=== PATIENT | male | born 2000 | race Caucasian/White ===

== ENCOUNTER 2022-12-02 17:14 | Emergency (ER) | payer OTHER ==
[~2022-12-02] VITALS: Ht 170.1 cm; Wt 77.1 kg
[2022-12-02 18:43] LABS: BASO % 0.6 % (0.0-1.0); EOS # 0.1 10*3/uL (0.0-0.4); EOS % 1.8 % (1.0-4.0); HEMATOCRIT 49.9 % (42.0-52.0); LYMPH # 2.1 10*3/uL (1.3-4.4); MEAN CELL VOLUME 89.6 fl (80.0-94.0); MEAN CORPUSCULAR HGB 31.6 pg (27.0-31.0); MEAN CORPUSCULAR HGB CONC 35.3 g/dl (33.0-37.0); MEAN PLATELET VOLUME 9.4 fl (9.6-12.3); MONO # 0.8 10*3/uL (0.1-1.0); MONO % 11.5 % (3.0-9.0); NEUT # 3.7 10*3/uL (2.3-7.9); NEUT % 54.8 % (47.0-73.0); PLATELET COUNT AUTOMATED 291 10*3/uL (130-400); RED BLOOD COUNT 5.57 10*6/uL (4.50-5.90); RED CELL DISTRI WIDTH 12.3 % (0-14.5); WHITE BLOOD COUNT 6.8 10*3/uL (4.8-10.8)
[2022-12-02 19:16] LABS: ALKALINE PHOSPHATASE 80 U/L (46-116); BUN 8 mg/dl (9-23); CHLORIDE 104 mmol/L (98-107); LIPASE 40 U/L (12-53); POTASSIUM 3.8 mmol/L (3.4-5.1); SGPT/ALT 15 U/L (10-49); TOTAL PROTEIN 7.4 gm/dL (6.0-8.0)
== END 2022-12-02 21:26 | disposition home or self-care (01) ==
LOC: ED 17:14
PROVIDERS: Physician Assistant Medical
DX: Q67.6 Pectus excavatum (principal)

== ENCOUNTER 2023-01-04 18:48 | Emergency (ER) | payer OTHER ==
[~2023-01-04] VITALS: Ht 167.6 cm; Wt 77.1 kg
[2023-01-04 19:22] LABS: BILIRUBIN Negative (Negative); BLOOD Negative (Negative); CLARITY Clear (Clear); COLOR Yellow (Yellow); GLUCOSE Negative (Negative); KETONE Negative (Negative); LEUKO ESTERASE Negative (Negative); NITRITE Negative (Negative)
[2023-01-04 19:24] LABS: RED CELL DISTRI WIDTH 12.4 % (0-14.5)
[2023-01-04 19:35] LABS: BASO % 0.5 % (0.0-1.0); EOS # 0.1 10*3/uL (0.0-0.4); EOS % 1.6 % (1.0-4.0); HEMATOCRIT 50.3 % (42.0-52.0); LYMPH # 2.9 10*3/uL (1.3-4.4); LYMPH % 38.6 % (27.0-41.0); MEAN CELL VOLUME 88.6 fl (80.0-94.0); MEAN CORPUSCULAR HGB 32.4 pg (27.0-31.0); MEAN CORPUSCULAR HGB CONC 36.6 g/dl (33.0-37.0); MEAN PLATELET VOLUME 9.6 fl (9.6-12.3); MONO # 0.6 10*3/uL (0.1-1.0); MONO % 8.1 % (3.0-9.0); NEUT # 3.8 10*3/uL (2.3-7.9); NEUT % 51.1 % (47.0-73.0); PLATELET COUNT AUTOMATED 312 10*3/uL (130-400); RED BLOOD COUNT 5.68 10*6/uL (4.50-5.90); WHITE BLOOD COUNT 7.4 10*3/uL (4.8-10.8)
[2023-01-04 19:36] LABS: ACT PARTIAL THROMBO TIME 30.2 SECONDS (20.0-32.1)
[2023-01-04 19:45] LABS: ALKALINE PHOSPHATASE 96 U/L (46-116); BUN 6 mg/dl (9-23); CHLORIDE 108 mmol/L (98-107); LIPASE 54 U/L (12-53); POTASSIUM 3.8 mmol/L (3.4-5.1); SGPT/ALT 18 U/L (10-49); TOTAL PROTEIN 7.7 gm/dL (6.0-8.0)
[2023-01-04 20:03] LABS: BACTERIA 1+; MUCOUS 1+
[2023-01-04] MEDS ORDERED: ONDANSETRON4 MG SL (20:51)
== END 2023-01-04 21:34 | disposition home or self-care (01) ==
LOC: ED 18:48
PROVIDERS: Internal Medicine
DX: K52.9 Noninfective gastroenteritis and colitis, unspecified (principal)

== ENCOUNTER 2023-05-18 22:31 | Emergency (ER) | payer OTHER ==
[~2023-05-18] VITALS: Ht 182.8 cm; Wt 79.4 kg
[~2023-05-18 22:31] MED LIST: ONDANSETRON4 MG SL
[2023-05-18 23:37] LABS: BASO % 0.5 % (0.0-1.0); EOS # 0.1 10*3/uL (0.0-0.4); EOS % 1.4 % (1.0-4.0); LYMPH # 2.1 10*3/uL (1.3-4.4); LYMPH % 32.7 % (27.0-41.0); MEAN CORPUSCULAR HGB 31.4 pg (27.0-31.0); MEAN CORPUSCULAR HGB CONC 35.3 g/dl (33.0-37.0); MEAN PLATELET VOLUME 9.4 fl (9.6-12.3); MONO # 0.5 10*3/uL (0.1-1.0); MONO % 7.2 % (3.0-9.0); NEUT # 3.6 10*3/uL (2.3-7.9); PLATELET COUNT AUTOMATED 294 10*3/uL (130-400); RED BLOOD COUNT 5.28 10*6/uL (4.50-5.90); RED CELL DISTRI WIDTH 12.4 % (0-14.5); WHITE BLOOD COUNT 6.3 10*3/uL (4.8-10.8)
[2023-05-19 00:04] LABS: ALKALINE PHOSPHATASE 79 U/L (46-116); BUN 9 mg/dl (9-23); CHLORIDE 107 mmol/L (98-107); POTASSIUM 3.2 mmol/L (3.4-5.1); SGPT/ALT 16 U/L (5-49); TOTAL PROTEIN 6.9 gm/dL (6.0-8.0)
== END 2023-05-19 03:04 | disposition home or self-care (01) ==
LOC: ED 22:31
PROVIDERS: Emergency Medicine
DX: R07.89 Other chest pain (principal); R73.9 Hyperglycemia, unspecified; E87.6 Hypokalemia

== ENCOUNTER 2023-10-11 12:01 | Emergency (ER) | payer SELFPAY | END 2023-10-11 18:57 | disposition left against medical advice (07) | LOC: ED 12:01 | DX: K08.89 Other specified disorders of teeth and supporting structures (principal); R22.9 Localized swelling, mass and lump, unspecified; Z53.21 Procedure and treatment not carried out due to patient leaving prior to being seen by health care provider ==

== ENCOUNTER 2023-10-13 13:19 | Emergency (ER) | payer MEDICAID ==
[~2023-10-13] VITALS: Ht 175.2 cm; Wt 82.1 kg
[2023-10-13] MEDS ORDERED: TOPCARE OMEPRAZ20 MG PO (13:26)
[2023-10-13] MEDS ORDERED: VITAMIN D-40010 MCG PO (13:26)
[2023-10-13] MEDS ORDERED: PENICILLIN VK500 MG PO (13:37)
[2023-10-13] MEDS ORDERED: PENICILLIN V POTASSIUM 500 MG TAB PO ONE (13:40)
[2023-10-13] MEDS ORDERED: Ketorolac Tromethamine 30 MG/ML VIAL IM ONE (13:40)
== END 2023-10-13 13:56 | disposition home or self-care (01) ==
LOC: ED 13:19
DX: K08.89 Other specified disorders of teeth and supporting structures (principal)

== ENCOUNTER 2024-09-14 12:05 | Emergency (ER) | payer SELFPAY ==
[~2024-09-14] VITALS: Ht 167.6 cm; Wt 85.7 kg
[~2024-09-14 12:05] MED LIST changes: +PENICILLIN VK500 MG PO; +TOPCARE OMEPRAZ20 MG PO; +VITAMIN D-40010 MCG PO
[2024-09-14] MEDS ORDERED: Lidocaine Hydrochloride 15 ML UDC PO STA (12:47)
[2024-09-14] MEDS ORDERED: Dicyclomine Hydrochloride 20 MG/10 ML OSYR PO STA (12:47)
[2024-09-14] MEDS ORDERED: MG-AL HYDROXIDE/SIMETICONE 30 ML UDC PO STA (12:47)
[2024-09-14 12:59] LABS: BASO # 0.1 10*3/uL (0.0-0.1); BASO % 0.7 % (0.0-1.0); EOS # 0.2 10*3/uL (0.0-0.4); EOS % 2.2 % (1.0-4.0); HEMATOCRIT 46.4 % (42.0-52.0); MEAN CELL VOLUME 89.1 fl (80.0-94.0); MEAN CORPUSCULAR HGB 32.1 pg (27.0-31.0); MEAN PLATELET VOLUME 9.2 fl (9.6-12.3); MONO # 0.5 10*3/uL (0.1-1.0); MONO % 6.3 % (3.0-9.0); NEUT # 4.9 10*3/uL (2.3-7.9); NEUT % 66.2 % (47.0-73.0); PLATELET COUNT AUTOMATED 284 10*3/uL (130-400); RED BLOOD COUNT 5.21 10*6/uL (4.50-5.90); RED CELL DISTRI WIDTH 12.8 % (0-14.5); WHITE BLOOD COUNT 7.3 10*3/uL (4.8-10.8)
[2024-09-14 13:19] LABS: BUN 10 mg/dl (9-23); CHLORIDE 102 mmol/L (98-107); POTASSIUM 3.4 mmol/L (3.4-5.1)
[2024-09-14] MEDS ORDERED: methylPREDNISolone sod succ 125 MG VIAL IM ONE (14:00)
[2024-09-14] MEDS ORDERED: MEDROL DOSEPAK4 MG PO (14:02)
== END 2024-09-14 14:19 | disposition home or self-care (01) ==
LOC: ED 12:05
PROVIDERS: Nurse Practitioner
DX: R07.2 Precordial pain (principal); K21.9 Gastro-esophageal reflux disease without esophagitis; Z79.899 Other long term (current) drug therapy